=== PATIENT | female | born 1990 | race American Indian/Alaskan Native ===

== ENCOUNTER 2016-11-11 14:26 | Emergency (ER) | payer MEDICAID ==
[2016-11-11] MEDS ORDERED: Sodium Chloride 0.9% 10 ML Syringe FLUSH PRN (15:43)
[2016-11-11] MEDS ORDERED: Sodium Chloride 0.9% 1,000 ML IV ONE ×2 (15:43→18:40)
[2016-11-11 15:52] VITALS: BP 114/87
--- NOTE | 2016-11-11 16:18 | EDM.PDOC ---
ED HPI GENERAL MEDICAL PROBLEM - General Chief Complaint: Abdominal Pain Stated Complaint: STOMACH PAIN Time Seen by Provider: 11/11/16 16:09 Source of Information: Reports: Patient, RN, RN Notes Reviewed History Limitations: Reports: No Limitations - History of Present Illness INITIAL COMMENTS - FREE TEXT/NARRATIVE: Patient presents to the ER with c/o severe abdominal pain. She states this pain began 1 week ago. It has progressively worsened. She states the pain is in the lower right and left quadrants and wraps around to the right flank. She states she has been having fevers on and off. She denies N/V/D, CP, SOB, headaches. Patient states when she steps on the right leg she has sharp pain shooting into the right side of the abdomen. LMP: End october (stated by patient) Onset: Gradual Onset Date: 11/06/16 Duration: Getting Worse Location: Reports: Abdomen Quality: Reports: Sharp, Stabbing Severity: Severe Improves with: Reports: None Worsens with: Reports: None Associated Symptoms: Reports: Fever/Chills - Related Data Allergies Allergy/AdvReac Type Severity Reaction Status Date / Time No Known Allergies Allergy Verified 11/11/16 15:36 Home Meds: Home Meds . [No Known Home Meds] 11/11/16 [History] ED ROS GENERAL - Review of Systems Review Of Systems: ROS reveals no pertinent complaints other than HPI. ED EXAM, GI/ABD - Physical Exam Exam: See Below Exam Limited By: No Limitations General Appearance: Alert, WD/WN, No Apparent Distress Eyes: Bilateral: Normal Appearance Ears: Normal External Exam, Hearing Grossly Normal Nose: Normal Inspection, Normal Mucosa, No Blood Throat/Mouth: Normal Inspection, Normal Lips, Normal Teeth, Normal Gums, Normal Oropharynx, Normal Voice, No Airway Compromise Head: Atraumatic, Normocephalic Neck: Normal Inspection, Supple, Non-Tender, Full Range of Motion Respiratory/Chest: No Respiratory Distress, Lungs Clear, Normal Breath Sounds, No Accessory Muscle Use, Chest Non-Tender Cardiovascular: Normal Peripheral Pulses, Regular Rate, Rhythm, No Edema, No Gallop, No JVD, No Murmur, No Rub GI/Abdominal Exam: Normal Bowel Sounds, Soft, Non-Tender, No Organomegaly, No Distention, No Abnormal Bruit, No Mass, Rebound (rlq) (Female) Exam: Deferred Rectal (Female) Exam: Deferred Back Exam: Normal Inspection, Full Range of Motion Extremities: Normal Inspection, Normal Range of Motion, Non-Tender, No Pedal Edema, Normal Capillary Refill Neurological: Alert, Oriented, Normal Cognition, Normal Gait, Normal Reflexes, No Motor/Sensory Deficits Psychiatric: Normal Affect, Normal Mood Skin Exam: Warm, Dry, Intact, Normal Color, No Rash Lymphatic: No Adenopathy Course - Vital Signs Last Recorded V/S: Last Vital Signs Temp 98 F 11/11/16 15:28 Pulse 88 11/11/16 15:28 Resp 16 11/11/16 15:28 BP 114/87 11/11/16 15:28 Pulse Ox 100 11/11/16 15:28 - Orders/Labs/Meds Orders: Active Orders 24 hr Category Date Time Status EKG Documentation Completion [RC] STAT Care 11/11/16 18:32 Active Peripheral IV Care [RC] . DIRECTED Care 11/11/16 15:43 Active Sodium Chloride 0.9% [Saline Flush] Med 11/11/16 15:43 Active 10 ml FLUSH ASDIRECTED PRN Peripheral IV Insertion Adult [OM.PC] Stat Oth 11/11/16 15:43 Ordered Medication Orders Sodium Chloride (Saline Flush) 10 ml FLUSH ASDIRECTED PRN PRN Reason: Keep Vein Open Labs: Laboratory Tests 11/11/16 11/11/16 11/11/16 Range/Units 15:50 15:50 15:50 WBC 17.9 H (5.0-10.0) 10^3/uL RBC 4.33 (4.2-5.4) 10^6/uL Hgb 11.9 L (12.0-16.0) g/dL Hct 36.6 L (37.0-47.0) % MCV 84.5 (80-100) fL MCH 27.5 (27.0-34.0) pg MCHC 32.5 L (33.0-35.0) g/dL Plt Count 369 (150-450) 10^3/uL Neut % (Auto) 80.3 H (42.2-75.2) % Lymph % (Auto) 11.9 L (20.5-50.1) % [place] % (Auto) 6.6 (2-8) % Eos % (Auto) 1.0 (1.0-3.0) % Baso % (Auto) 0.2 (0.0-1.0) % Sodium 138 (135-145) mmol/L Potassium 3.5 L (3.6-5.0) mmol/L Chloride 101 (101-111) mmol/L Carbon Dioxide 28.0 (21.0-31.0) mmol/L Anion Gap 12.5 BUN 8 (7-18) mg/dL Creatinine 0.7 (0.6-1.3) mg/dL Est Cr Clr Drug Dosing 106.09 mL/min Estimated GFR (MDRD) > 60 BUN/Creatinine Ratio 11.42 Glucose 73 L (74-105) mg/dL Calcium 8.5 (8.4-10.2) mg/dl Total Bilirubin 0.5 (0.2-1.0) mg/dL AST 17 (10-42) IU/L ALT 22 (10-60) IU/L Alkaline Phosphatase 95 (42-121) IU/L Total Protein 7.1 (6.7-8.2) g/dl Albumin 3.3 (3.2-5.5) g/dl Globulin 3.8 Albumin/Globulin Ratio 0.87 Urine Color (YELLOW) Urine Appearance (CLEAR) Urine pH (5.0-9.0) Ur Specific [place] (1.005-1.030) Urine Protein (NEGATIVE) Urine Glucose (UA) (NEGATIVE) Urine Ketones (NEGATIVE) Urine Occult Blood (NEGATIVE) Urine Nitrite (NEGATIVE) Urine Bilirubin (NEGATIVE) Urine Urobilinogen (0.2-1.0) mg/dL Ur Leukocyte Esterase (NEGATIVE) Urine RBC /HPF Urine WBC (0-5/HPF) /HPF Ur Epithelial Cells /HPF Urine Bacteria (0-FEW/HPF) /HPF Hyaline Casts /LPF Urine Mucus /LPF Urine HCG, Qual Urine Opiates Screen (NEGATIVE) Ur Oxycodone Screen (NEGATIVE) Urine Methadone Screen (NEGATIVE) Ur Barbiturates Screen (NEGATIVE) U Tricyclic Antidepress (NEGATIVE) Ur Phencyclidine Scrn (NEGATIVE) Ur Amphetamine Screen (NEGATIVE) U Methamphetamines Scrn (NEGATIVE) Urine MDMA Screen (NEGATIVE) U Benzodiazepines Scrn (NEGATIVE) Urine Cocaine Screen (NEGATIVE) U Marijuana (THC) Screen (NEGATIVE) Ethyl Alcohol < 5 mg/dL 10/05/2511/11/16 11/11/16 Range/Units 16:24 16:24 16:24 WBC (5.0-10.0) 10^3/uL RBC (4.2-5.4) 10^6/uL Hgb (12.0-16.0) g/dL Hct (37.0-47.0) % MCV (80-100) fL MCH (27.0-34.0) pg MCHC (33.0-35.0) g/dL Plt Count (150-450) 10^3/uL Neut % (Auto) (42.2-75.2) % Lymph % (Auto) (20.5-50.1) % [place] % (Auto) (2-8) % Eos % (Auto) (1.0-3.0) % Baso % (Auto) (0.0-1.0) % Sodium (135-145) mmol/L Potassium (3.6-5.0) mmol/L Chloride (101-111) mmol/L Carbon Dioxide (21.0-31.0) mmol/L Anion Gap BUN (7-18) mg/dL Creatinine (0.6-1.3) mg/dL Est Cr Clr Drug Dosing mL/min Estimated GFR (MDRD) BUN/Creatinine Ratio Glucose (74-105) mg/dL Calcium (8.4-10.2) mg/dl Total Bilirubin (0.2-1.0) mg/dL AST (10-42) IU/L ALT (10-60) IU/L Alkaline Phosphatase (42-121) IU/L Total Protein (6.7-8.2) g/dl Albumin (3.2-5.5) g/dl Globulin Albumin/Globulin Ratio Urine Color Dark yellow (YELLOW) Urine Appearance Clear (CLEAR) Urine pH 5.5 (5.0-9.0) Ur Specific [place] >= 1.030 (1.005-1.030) Urine Protein 30 H (NEGATIVE) Urine Glucose (UA) Negative (NEGATIVE) Urine Ketones Trace H (NEGATIVE) Urine Occult Blood Negative (NEGATIVE) Urine Nitrite Negative (NEGATIVE) Urine Bilirubin Small H (NEGATIVE) Urine Urobilinogen 1.0 (0.2-1.0) mg/dL Ur Leukocyte Esterase Small H (NEGATIVE) Urine RBC 0-5 /HPF Urine WBC 10-20 H (0-5/HPF) /HPF Ur Epithelial Cells Many H /HPF Urine Bacteria Many H (0-FEW/HPF) /HPF Hyaline Casts Few H /LPF Urine Mucus Many H /LPF Urine HCG, Qual Negative Urine Opiates Screen Positive H (NEGATIVE) Ur Oxycodone Screen Positive H (NEGATIVE) Urine Methadone Screen Negative (NEGATIVE) Ur Barbiturates Screen Negative (NEGATIVE) U Tricyclic Antidepress Negative (NEGATIVE) Ur Phencyclidine Scrn Negative (NEGATIVE) Ur Amphetamine Screen Positive H (NEGATIVE) U Methamphetamines Scrn Positive H (NEGATIVE) Urine MDMA Screen Positive H (NEGATIVE) U Benzodiazepines Scrn Negative (NEGATIVE) Urine Cocaine Screen Negative (NEGATIVE) U Marijuana (THC) Screen Positive H (NEGATIVE) Ethyl Alcohol mg/dL Meds: Medications Generic Name Dose Route Start Last Admin Trade Name Freq PRN Reason Stop Dose Admin Sodium Chloride 10 ml 11/11/16 15:43 Saline Flush FLUSH ASDIRECTED PRN Keep Vein Open Discontinued Medications Generic Name Dose Route Start Last Admin Trade Name Freq PRN Reason Stop Dose Admin Hydromorphone HCl 0.5 mg 11/11/16 16:50 11/11/16 17:00 Dilaudid IVPUSH 11/11/16 16:51 0.5 mg ONETIME ONE Administration Sodium Chloride 1,000 mls @ 999 mls/hr 11/11/16 15:43 11/11/16 16:00 Normal Saline IV 11/11/16 16:43 999 mls/hr .BOLUS ONE Administration Iopamidol 75 ml 11/11/16 17:03 11/11/16 17:34 Isovue-300 (61%) IVPUSH 11/11/16 17:04 75 ml ONETIME ONE Administration Departure - Departure Time of Disposition: 18:37 Disposition: DC/Tfer to Acute Hospital 02 Condition: Fair Clinical Impression: Abdominal abscess Abdominal pain Qualifiers: Abdominal location: lower abdomen, unspecified Qualified Code(s): R10.30 - Lower abdominal pain, unspecified - Discharge Information Forms: ED Department Discharge, Interfacility Transfer EMTALA - My Orders Last 24 Hours: My Active Orders 11/11/16 15:43 Peripheral IV Care [RC] . DIRECTED Sodium Chloride 0.9% [Saline Flush] 10 ml FLUSH ASDIRECTED PRN Peripheral IV Insertion Adult [OM.PC] Stat 11/11/16 18:32 EKG Documentation Completion [RC] STAT - Assessment/Plan Last 24 Hours: My Active Orders 11/11/16 15:43 Peripheral IV Care [RC] . DIRECTED Sodium Chloride 0.9% [Saline Flush] 10 ml FLUSH ASDIRECTED PRN Peripheral IV Insertion Adult [OM.PC] Stat 11/11/16 18:32 EKG Documentation Completion [RC] STAT
[2016-11-11 16:21] LABS: CHLORIDE,CL 101 mmol/L (101-111); SODIUM,NA 138 mmol/L (135-145)
[2016-11-11] MEDS ORDERED: HYDROmorphone 1 MG/ML Syringe IVPUSH ONE ×2 (16:50→18:40)
[2016-11-11] MEDS ORDERED: Iopamidol 612 MG/ML 75 ML Bottle IVPUSH ONE (17:03)
--- NOTE | 2016-11-14 11:34 | EKG ---
11/11/2016 - ATILIO STAPLES - This 12-lead EKG shows normal sinus rhythm. No significant ST elevation or ST depression noted on this 12-lead EKG. [facility] /[id number]
== END 2016-11-11 19:01 ==
LOC: DL.ED 14:26
DX: K65.1 Peritoneal abscess (principal)
CPT/HCPCS: 36415; 74177; 80053; 80305; 81001; 81025; 83605; 85025; 87040; 93005; 93010; 96361; 96374; 96376; 99285; G0480; J1170; J7030; J7050; Q9967; 99284

== ENCOUNTER 2019-10-26 00:01 | Inpatient (IN) | payer MEDICAID, OTHER ==
[~2019-10-26 00:01] MED LIST: Acetaminophen 325 MG Tab PO PRN; Carboprost Tromethamine 250 MCG/1 ML Amp IM PRN; Lactated Ringers 1,000 ML IV ONE; Lactated Ringers 1,000 ML IV SCH; Lactated Ringers 500 ML IV SCH; Lidocaine 1% 30 ML SDV INJECT PRN; Methylergonovine 0.2 MG/1 ML Amp IM PRN; Misoprostol 400 MCG (4 X 100 MCG TAB) RECTAL PRN; Naloxone 2 MG/2 ML Syringe IVPUSH PRN; Ondansetron 4 MG/2 ML SDV IVPUSH PRN; Oxytocin/Normal Saline 30 UNIT/500 ML BAG IV SCH; Promethazine 25 MG/ML SDV IM PRN; Sodium Chloride 0.9% 1,000 ML IV SCH; Sodium Chloride 0.9% 10 ML Syringe FLUSH PRN; Tranexamic Acid 1,000 MG in Sodium Chloride 0.9% 100 ML IV PRN; ePHEDrine 50 MG/ML SDV IVPUSH PRN
[2019-10-26] MEDS: Misoprostol 25 MCG (1/4 of 100 MCG) Tab VAG PRN ×3 (00:58→09:19)
[2019-10-26] MEDS: Lactated Ringers 1,000 ML IV SCH (14:45)
[2019-10-26] MEDS ORDERED: hydrOXYzine HCl 25 MG Tab PO PRN (21:19)
[2019-10-27] MEDS: Lactated Ringers 1,000 ML IV SCH ×2 (02:36→20:14)
--- NOTE | 2019-10-27 05:34 | PCM.LDHP ---
L&D History of Present Illness - General Date of Service: 10/26/19 Admit Problem/Dx: Patient Status Order with Admit Dx/Problem 10/25/19 16:01 Patient Status [ADT] Routine Admission Diagnosis/Problem Admission Diagnosis/Problem Term Source of Information: Patient - History of Present Illness Introduction:: Patient is a at 40w0d based on a 34 week ultrasound who presents to L&D for induction of labor due to term dates. She is GBS positive. She states baby has been active. Denies contractions, vaginal bleeding, leakage of fluid. has been complicated by maternal drug use up until August when she was incarcerated. Urine drug tests were positive for methamphetamines, amphetamines, marijuana and MDMA. She was incarcerated in the third trimester and has had clean urine drug screens since then. She does use tobacco. She has a history of macrosomia, shoulder dystocia with a broken clavicle during her first delivery. Her third baby was born at 36 weeks. She did require vacuuming in 2 of her 3 deliveries as well. She did have preeclampsia with one of the pregnancies. Past medical history: depression, pelvic abscess, polysubstance abuse Pain Score: 0 - Related Data Allergies/Adverse Reactions: Allergies Allergy/AdvReac Type Severity Reaction Status Date / Time amoxicillin Allergy Other Verified 10/26/19 01:05 Home Medications: Home Meds Ferrous Sulfate [Feosol] 325 mg PO DAILY 10/26/19 [History] #103/Iron Fumarate/Fa [ ] 1 tab PO DAILY 10/26/19 [History] diphenhydrAMINE HCL [Benadryl] 25 mg PO BEDTIME PRN 10/26/19 [History] Past Medical History HEENT History: Reports: None Cardiovascular History: Reports: Heart Murmur Respiratory History: Reports: None Gastrointestinal History: Reports: None Genitourinary History: Reports: STD, UTI, Recurrent [employer] History: Reports: , Other (See Below) Other OB/BYN History: hx abnormal pap, hx of pelvic abscess Musculoskeletal History: Reports: None Neurological History: Reports: None Psychiatric History: Reports: Addiction, Depression Endocrine/Metabolic History: Reports: None Hematologic History: Reports: Anemia Immunologic History: Reports: None Oncologic (Cancer) History: Reports: None Dermatologic History: Reports: None - Infectious Disease History Infectious Disease History: Reports: Hepatitis C - Past Surgical History Female Surgical History: Reports: None Other Female Surgeries/Procedures: Pelvic abscess drainage Dermatological Surgical History: Reports: Other (See Below) Social & Family History - Family History Family Medical History: Noncontributory - Tobacco Use Smoking Status *Q: Current Some Day Smoker Tobacco Use Within Last Twelve Months: Cigarettes Years of Tobacco use: 5 Packs/Tins Daily: 0.2 Second Hand Smoke Exposure: No - Caffeine Use Caffeine Use: Reports: Soda - Recreational Drug Use Recreational Drug Use: Yes Drug Use in Last 12 Months: Yes Recreational Drug Type: Reports: Amphetamines (Speed), Marijuana/Hashish, Methamphetamine - Living Situation & Occupation Living situation: Reports: Single Occupation: Unemployed Social History Comment: Was in senior living on [facility]. Per patient, will be released from time committment at the time of her delivery. H&P Review of Systems - Review of Systems: Review Of Systems: See Below General: Denies: Fever, Chills HEENT: Reports: Headaches Pulmonary: Denies: Shortness of Breath, Cough Cardiovascular: Denies: Edema, Lightheadedness Gastrointestinal: Denies: Abdominal Pain, Nausea, Vomiting Skin: Denies: Rash L&D Exam - Exam Exam: See Below - Vital Signs Vital Signs: Last Vital Signs Temp 98.7 F 10/27/19 02:30 Pulse 66 10/27/19 02:30 Resp 16 10/27/19 02:30 BP 131/84 10/27/19 02:30 Pulse Ox 99 10/26/19 09:20 Weight: 192 lb - OB Specific Contraction Duration (sec): 60-80 Contraction Frequency (min): occasional Contraction Intensity: Mild Movement: Active Heart Tones: Present Heart Tones per Min: 140 Heart Rate (FHR) Variability: Moderate (6-25 bmp) Presentation: Vertex - Sharif Score Sharif Score Cervix Position: Posterior Sharif Score Consistency: Firm Sharif Score Effacement: 31-50% Sharif Score Dilation: 1-2 cm Sharif Score Infant's Station: -3 Sharif Score Total: 2 - Exam General: Alert, Oriented, Cooperative HEENT: Conjunctiva Clear, Mucosa Moist & [place], Posterior Pharynx Clear Neck: Supple, Trachea Midline Lungs: Clear to Auscultation, Normal Respiratory Effort Cardiovascular: Regular Rate, Regular Rhythm, Normal S1, Normal S2 GI/Abdominal Exam: Soft, Non-Tender Extremities: Normal Range of Motion, Non-Tender, No Pedal Edema Skin: Warm, Dry, Intact Neurological: Reflexes Equal Bilateral - Patient Data Result Diagrams: 10/26/19 00:42 - Problem List (1) Hx of macrosomia in in prior , currently SNOMED Code(s): 17785969033333, 01603901816820 ICD Code: O09.299 - SUPRVSN OF PREG W POOR REPRODCTV OR OBSTET HISTORY, UNSP TRI Status: Acute Current Visit: Yes (2) Hx shoulder dystocia, clavicle fx, prior , SNOMED Code(s): 509216539, 972260567 ICD Code: O09.299 - SUPRVSN OF PREG W POOR REPRODCTV OR OBSTET HISTORY, UNSP TRI Status: Acute Current Visit: Yes (3) Hx of delivery, currently SNOMED Code(s): 530309369, 327659178 ICD Code: O09.899 - SUPERVISION OF OTHER HIGH RISK PREGNANCIES, UNSP TRIMESTER Status: Acute Current Visit: Yes (4) GBS (group B Streptococcus carrier), +RV culture, currently SNOMED Code(s): 0324304439989, 597539381, 6667240674615 ICD Code: O99.820 - STREPTOCOCCUS B CARRIER STATE COMPLICATING Status: Acute Current Visit: Yes (5) Term SNOMED Code(s): 77307794 ICD Code: Z34.90 - ENCNTR FOR SUPRVSN OF NORMAL , UNSP, UNSP TRIMESTER Status: Acute Current Visit: Yes (6) Drug abuse during SNOMED Code(s): 81652437 ICD Code: O99.320 - DRUG USE COMPLICATING , UNSPECIFIED TRIMESTER; F19.10 - OTHER PSYCHOACTIVE SUBSTANCE ABUSE, UNCOMPLICATED Status: Acute Current Visit: Yes (7) Anemia affecting SNOMED Code(s): 56452603 ICD Code: O99.019 - ANEMIA COMPLICATING , UNSPECIFIED TRIMESTER Status: Acute Current Visit: Yes (8) Hx of pre-eclampsia in prior , currently SNOMED Code(s): 132773831973663, 020557074367383 ICD Code: O09.299 - SUPRVSN OF PREG W POOR REPRODCTV OR OBSTET HISTORY, UNSP TRI Status: Acute Current Visit: Yes Problem List Initiated/Reviewed/Updated: Yes Orders Last 24hrs: Active Orders 24 hr Category Date Time Status Nitrous Oxide Delivery [RC] ASDIRECTED Care 10/26/19 06:28 Active OB Discontinue Nitrous Oxide [RC] ASDIRECTED Care 10/26/19 06:28 Active Regular Diet [DIET] Diet 10/26/19 Breakfast Active hydrOXYzine HCL [Atarax] Med 10/26/19 21:19 Active 50 mg PO Q6H PRN Medication Orders Acetaminophen (Tylenol) 650 mg PO Q4H PRN PRN Reason: Pain/Fever Last Admin: 10/26/19 20:08 Dose: 650 mg Documented by: BRITTANI Carboprost Tromethamine (Hemabate Ds) 250 mcg IM ASDIRECTED PRN PRN Reason: HEMORRHAGE Ephedrine Sulfate (Ephedrine Sulfate) 5 mg IVPUSH Q5M PRN PRN Reason: See Label Comments Hydroxyzine HCl (Atarax) 50 mg PO Q6H PRN PRN Reason: Insomnia Last Admin: 10/26/19 22:13 Dose: 50 mg Documented by: BRITTANI Lactated Ringer's (Ringers, Lactated) 1,000 mls @ 999 mls/hr IV ASDIRECTED BECKY Oxytocin/Sodium Chloride (Pitocin In Ns 30 Unit/500 Ml) 30 unit in 500 mls @ 2 mls/hr IV TITRATE BECKY; Protocol Last Titration: 10/27/19 04:16 Dose: 6 munits/min, 6 mls/hr Documented by: Titration: 10/26/19 20:05 Dose: 5 munits/min, 5 mls/hr Documented by: Titration: 10/26/19 18:00 Dose: 6 munits/min, 6 mls/hr Documented by: Titration: 10/26/19 15:30 Dose: 4 munits/min, 4 mls/hr Documented by: Admin: 10/26/19 14:45 Dose: 2 munits/min, 2 mls/hr Documented by: LYRIC Lactated Ringer's (Ringers, Lactated) 1,000 mls @ 125 mls/hr IV ASDIRECTED BECKY Last Admin: 10/27/19 02:36 Dose: 125 mls/hr Documented by: Infusion: 10/26/19 22:45 Dose: 125 mls/hr Documented by: Admin: 10/26/19 14:45 Dose: 125 mls/hr Documented by: LYRIC Tranexamic Acid 1,000 mg/ (Sodium Chloride) 110 mls @ 660 mls/hr IV ONETIME PRN PRN Reason: Bleeding Lactated Ringer's (Ringers, Lactated) 500 mls @ 999 mls/hr IV SEECOMMENT BECKY Lactated Ringer's (Ringers, Lactated) 500 mls @ 999 mls/hr IV .BOLUS BECKY Vancomycin HCl 1 gm/ Sodium (Chloride) 250 mls @ 166.7 mls/hr IV Q12H BECKY Last Admin: 10/27/19 04:03 Dose: 130 mls/hr Documented by: Infusion: 10/26/19 18:28 Dose: 130 mls/hr Documented by: Admin: 10/26/19 16:32 Dose: 130 mls/hr Documented by: Infusion: 10/26/19 06:04 Dose: 166.7 mls/hr Documented by: Admin: 10/26/19 04:34 Dose: 166.7 mls/hr Documented by: BLANCA Lidocaine HCl (Xylocaine-Mpf 1%) 30 ml INJECT ASDIRECTED PRN PRN Reason: Perineal Repair Methylergonovine Maleate (Methergine) 0.2 mg IM ASDIRECTED PRN PRN Reason: Hemorrhage Misoprostol (Cytotec) 800 mcg RECTAL ASDIRECTED PRN PRN Reason: Hemorrhage Misoprostol (Cytotec) 25 mcg VAG Q4H PRN PRN Reason: cervical ripening Last Admin: 10/26/19 09:19 Dose: 25 mcg Documented by: Admin: 10/26/19 05:11 Dose: 25 mcg Documented by: Admin: 10/26/19 00:58 Dose: 25 mcg Documented by: BLANCA Naloxone HCl (Narcan) 0.1 mg IVPUSH SEECOMMENT PRN PRN Reason: Respiratory Depression Ondansetron HCl (Zofran) 4 mg IVPUSH Q4H PRN PRN Reason: Nausea/Vomiting Promethazine HCl (Phenergan) 12.5 mg IM Q6H PRN PRN Reason: Nausea/Vomiting Sodium Chloride (Saline Flush) 10 ml FLUSH ASDIRECTED PRN PRN Reason: Keep Vein Open Assessment/Plan Comment:: Patient presents for induction of labor due to term at 40w0d. Discussed use of cytotec due to low sharif score. Patient in agreement. Initiate pitocin when appropriate. GBS positive, clindamycin resistant, vanco susceptible. Vancomycin will be started in after 2nd dose of cytotec. Patient may eat tonight and have breakfast in the morning. Urine drug screen negative. Continue intrapartum cares. Patient does desire an intrathecal. Other pain relief options discussed. Amparo Samuel MD
[2019-10-27] MEDS: Misoprostol 25 MCG (1/4 of 100 MCG) Tab VAG PRN ×2 (08:54→14:09)
--- NOTE | 2019-10-27 09:22 | PCM.PNLD ---
Labor Progress Note - VS & Meds Vital Signs: Last Vital Signs Temp 98.8 F 10/27/19 08:00 Pulse 66 10/27/19 06:00 Resp 16 10/27/19 06:00 BP 114/66 10/27/19 06:00 Pulse Ox 99 10/26/19 09:20 Active Medications: Current Medications Acetaminophen (Tylenol) 650 mg PO Q4H PRN PRN Reason: Pain/Fever Last Admin: 10/26/19 20:08 Dose: 650 mg Documented by: Carboprost Tromethamine (Hemabate Ds) 250 mcg IM ASDIRECTED PRN PRN Reason: HEMORRHAGE Ephedrine Sulfate (Ephedrine Sulfate) 5 mg IVPUSH Q5M PRN PRN Reason: See Label Comments Hydroxyzine HCl (Atarax) 50 mg PO Q6H PRN PRN Reason: Insomnia Last Admin: 10/26/19 22:13 Dose: 50 mg Documented by: Lactated Ringer's (Ringers, Lactated) 1,000 mls @ 999 mls/hr IV ASDIRECTED BECKY Oxytocin/Sodium Chloride (Pitocin In Ns 30 Unit/500 Ml) 30 unit in 500 mls @ 2 mls/hr IV TITRATE BECKY; Protocol Last Titration: 10/27/19 08:00 Dose: 0 munits/min, 0 mls/hr Documented by: Lactated Ringer's (Ringers, Lactated) 1,000 mls @ 125 mls/hr IV ASDIRECTED BECKY Last Admin: 10/27/19 02:36 Dose: 125 mls/hr Documented by: Tranexamic Acid 1,000 mg/ (Sodium Chloride) 110 mls @ 660 mls/hr IV ONETIME PRN PRN Reason: Bleeding Lactated Ringer's (Ringers, Lactated) 500 mls @ 999 mls/hr IV SEECOMMENT BECKY Lactated Ringer's (Ringers, Lactated) 500 mls @ 999 mls/hr IV .BOLUS BECKY Vancomycin HCl 1 gm/ Sodium (Chloride) 250 mls @ 166.7 mls/hr IV Q12H BECKY Last Admin: 10/27/19 04:03 Dose: 130 mls/hr Documented by: Lidocaine HCl (Xylocaine-Mpf 1%) 30 ml INJECT ASDIRECTED PRN PRN Reason: Perineal Repair Methylergonovine Maleate (Methergine) 0.2 mg IM ASDIRECTED PRN PRN Reason: Hemorrhage Misoprostol (Cytotec) 800 mcg RECTAL ASDIRECTED PRN PRN Reason: Hemorrhage Misoprostol (Cytotec) 25 mcg VAG Q4H PRN PRN Reason: cervical ripening Last Admin: 10/27/19 08:54 Dose: 25 mcg Documented by: Naloxone HCl (Narcan) 0.1 mg IVPUSH SEECOMMENT PRN PRN Reason: Respiratory Depression Ondansetron HCl (Zofran) 4 mg IVPUSH Q4H PRN PRN Reason: Nausea/Vomiting Promethazine HCl (Phenergan) 12.5 mg IM Q6H PRN PRN Reason: Nausea/Vomiting Sodium Chloride (Saline Flush) 10 ml FLUSH ASDIRECTED PRN PRN Reason: Keep Vein Open Discontinued Medications Lactated Ringer's (Ringers, Lactated) 1,000 mls @ 999 mls/hr IV BOLUS ONE Stop: 10/25/19 17:00 Last Admin: 10/26/19 10:44 Dose: Not Given Documented by: Oxytocin/Sodium Chloride (Pitocin In Ns 30 Unit/500 Ml) 30 unit in 500 mls @ 2 mls/hr IV TITRATE BECKY; Protocol - Uterine Contractions Uterine Monitoring Mode: External [place] Contraction Frequency (min): occasional Contraction Duration (sec): 60-80 Contraction Intensity: Mild Uterine Resting Tone: Soft - Monitoring Heart Rate (FHR) Variability: Moderate (6-25 bmp) - Vaginal Exam Dilation (cm): 1 Effacement (Percent): 50 Station: Ballotable Cervical Position: Posterior Sterile Vaginal Exam Performed By: Jacqueline Hayward Vaginal Exam Comment: 25mcg cytotec placed - Labor Progress (Free Text) Labor Progress: Patient received 3 doses of Cytotec but contractions were too frequent to place a 4th dose. She was started on Pitocin. Due to contraction frequency, she was held at 6 of pit for much of the night. Patient's contractions are now spacing out. Baby continues to have category 1 strip. Her cervix remains unchanged since previous checks. We will stop Pitocin and restart Cytotec. Dr. Carr will be taking over starting at noon. I spoke with patient and significant other. She plans to walk and get on a birthing ball throughout the day. She is still comfortable with her contractions. She is in agreement with plan. Amparo Samuel MD
[2019-10-27] MEDS ORDERED: Ketorolac 30 MG/ML SDV IVPUSH SCH (20:00)
[2019-10-27] MEDS: Oxytocin/Normal Saline 30 UNIT/500 ML BAG IV SCH (20:10)
[2019-10-28] MEDS ORDERED: fentaNYL 100 MCG/2 ML SDV IVPUSH ONE ×2 (04:11→08:30)
[2019-10-28] MEDS: Lactated Ringers 1,000 ML IV SCH ×2 (06:33→09:30)
[2019-10-28] MEDS ORDERED: Sodium Chloride 0.9% 20 ML SDV ONE (10:30)
[2019-10-28] MEDS ORDERED: EPINEPHrine 1 MG/1 ML Amp ONE ×2 (10:30→10:36)
[2019-10-28] MEDS ORDERED: Sodium Bicarbonate 4.2% 2.5 MEQ/5 ML SDV ONE ×2 (10:30→10:37)
[2019-10-28] MEDS ORDERED: fentaNYL 100 MCG/2 ML SDV ITHECAL ONE (10:30)
[2019-10-28] MEDS ORDERED: fentaNYL 100 MCG/2 ML SDV ONE (10:36)
--- NOTE | 2019-10-28 11:01 | PCM.SN.2 ---
- Free Text/Narrative Note: Intrathecal, sitting position, sterile prep and drape. 1% lidocaine with bicarb for skinwheal to L2 L3 interspace. Introducer, 24 ga pencan x 1. Pos CSF, neg heme, neg parasthesia. 0.1 ml 1:1000 pf epi , 20 mcg pf sufenta, 30 mcg pf fentanyl, 0.4 ml pf ns and 6 mg of 0.75% marcaine injected after CSF aspiration. Pt to L lateral position. Procedure time 1040 to 1110
[2019-10-28] MEDS ORDERED: Zolpidem 5 MG Tab PO PRN (13:38)
[2019-10-28] MEDS ORDERED: Simethicone 80 MG Tab.Chew PO PRN (13:38)
[2019-10-28] MEDS ORDERED: Oxytocin 10 Units/1 ML SDV IM PRN (13:38)
[2019-10-28] MEDS ORDERED: Benzocaine/Menthol 20%-0.5% Spray 56 GM Canister TOP PRN (13:38)
[2019-10-28] MEDS ORDERED: Tranexamic Acid 1,000 MG in Sodium Chloride 0.9% 100 ML IV PRN (13:38)
[2019-10-28] MEDS ORDERED: Carboprost Tromethamine 250 MCG/1 ML Amp IM PRN (13:38)
[2019-10-28] MEDS ORDERED: Sodium Chloride 0.9% 10 ML Syringe FLUSH PRN (13:38)
[2019-10-28] MEDS ORDERED: Misoprostol 400 MCG (4 X 100 MCG TAB) RECTAL PRN (13:38)
[2019-10-28] MEDS ORDERED: Acetaminophen 325 MG Tab PO PRN (13:38)
[2019-10-28] MEDS: Oxytocin/Normal Saline 30 UNIT/500 ML BAG IV SCH (14:20)
--- NOTE | 2019-10-28 17:11 | DEL ---
DATE: 10/28/2019 LOCATION: [facility]. PREDELIVERY DIAGNOSES: Intrauterine at 39+ weeks gestational age with advanced maternal age and group B Streptococcus positive. Delivery was a normal spontaneous vaginal delivery. Delivering clinician was Dr. Carr. FINDINGS: There was a viable infant, who weighed 3670 g. scores were 8 and 9. No laceration. ESTIMATED BLOOD LOSS: 300 mL to 400 mL. Rectal Cytotec was placed for some atony. PROCEDURE IN DETAIL: The patient was brought in and induced with Cytotec, Pitocin, and AROM. She did require an IUPC, intrathecal was also placed. When the patient did proceed to complete, the patient did push. The 's head was delivered. Shoulder and body were delivered without any difficulties. The infant was placed on the maternal abdomen. Cord was cut and clamped. Cord blood was collected. The placenta was then delivered intact with uterine massage and some gentle traction. Perineum was examined. There were no lacerations. EBL was roughly 300 mL to 400 mL. There was some atony, which was unresponsive to massage and third stage Pitocin. Therefore, 800 mg of Cytotec was given per rectum, and then the vaginal bleeding did slow. At the end of the procedure, mom and baby were both doing well. [facility] /[id number]
[2019-10-28] MEDS: Ibuprofen 800 MG Tab PO PRN (19:57)
[2019-10-29] MEDS: Ibuprofen 800 MG Tab PO PRN ×2 (08:58→19:34)
[2019-10-29] MEDS: Docusate Sodium 100 MG Cap PO PRN (08:58)
[2019-10-29] MEDS: Prenatal Multivitamin with Calcium/Folic Acid/Iron Tab PO SCH (08:58)
--- NOTE | 2019-10-29 11:16 | PN ---
DATE: 10/29/2019 SUBJECTIVE: The patient is day 1, status post vaginal delivery at term. Mom and baby are both doing well. Bleeding is minimal. PHYSICAL EXAMINATION: Vital Signs: Temperature 36.8, blood pressure 123/88, heart rate 73, respiratory rate 14, and O2 saturation 99%. Abdomen: Patient's fundus is firm, below the umbilicus. Extremities: Have no tenderness. No edema. LABORATORY DATA: Patient's pre-delivery hemoglobin was 11.9 and this morning hemoglobin of 10.2, white count 11.5, and platelets 213. She is COVID-negative. Blood type O-positive and rubella immune. ASSESSMENT AND PLAN: day #1 status post vaginal delivery. Mom and baby are both doing well. We will continue care and likely discharge tomorrow. [facility] /[id number]
[2019-10-30] MEDS: Ibuprofen 800 MG Tab PO PRN (08:57)
[2019-10-30] MEDS: Prenatal Multivitamin with Calcium/Folic Acid/Iron Tab PO SCH (08:57)
[2019-10-30] MEDS: Docusate Sodium 100 MG Cap PO PRN (08:57)
[2019-10-30 09:05] VITALS: BP 130/91; PULSE 73
--- NOTE | 2019-10-30 11:51 | PCM.DCSUM1 ---
Discharge Summary - Hospital Course Free Text/Narrative:: 29-year-old s/p at 39+ weeks after IOL. Diagnosis: Stroke: No - Discharge Data Discharge Date: 10/30/19 Discharge Disposition: Home, Self-Care 01 Condition: Good - Referral to Home Health Primary Care Physician: Amparo Samuel MD - Patient Summary/Data Operative Procedure(s) Performed: None Complications: None Consults: Consultations 10/25/19 16:00 Consult to Case Management/Online Community Manager [CONS] Routine Labs Pending at D/C: none Recommended Follow-up Testing/Procedures: None Planned Operative Procedure(s) after DC: None Hospital Course: Please see subjective section - Patient Instructions Diet: Usual Diet as Tolerated Activity: As Tolerated, No Lifting Over 20 Pounds Driving: May Drive Today Showering/Bathing: May Shower Notify Provider of: Fever, Increased Pain, Swelling and Redness, Nausea and/or Vomiting - Discharge Plan *PRESCRIPTION DRUG MONITORING PROGRAM REVIEWED*: Not Applicable *COPY OF PRESCRIPTION DRUG MONITORING REPORT IN PATIENT YONI: Not Applicable Home Medications: Home Meds Ferrous Sulfate [Feosol] 325 mg PO DAILY 10/26/19 [History] #103/Iron Fumarate/Fa [ ] 1 tab PO DAILY 10/26/19 [History] diphenhydrAMINE HCL [Benadryl] 25 mg PO BEDTIME PRN 10/26/19 [History] Acetaminophen [Tylenol] 650 mg PO Q6H PRN tablet 10/30/19 [Rx] Docusate Sodium [Colace] 100 mg PO BID PRN cap 10/30/19 [Rx] Ibuprofen [Motrin] 800 mg PO Q8H PRN tablet 10/30/19 [Rx] witch Emilie [Medi-Pads] 1 each TOP Q4HR PRN pad 10/30/19 [Rx] Patient Handouts: Substance Use Disorder and Mental Illness, Baby Blues, Care After Vaginal Delivery Referrals: Amparo Samuel MD [Primary Care Provider] - (6-8 weeks for visit) - Discharge Summary/Plan Comment DC Time >30 min.: No Discharge Summary/Plan Comment: Discharge home today. Routine discharge information provided. Follow-up with Dr. Samuel in 6-8 weeks for routine care and sooner as needed. - General Info Date of Service: 10/30/19 Subjective Update: Patient is doing well. She is breast and bottle feeding. Tolerating a general diet. Voiding without difficulty. No dizziness or lightheadedness with ambulation. No fever or chills. Vaginal bleeding is decreasing. No concerns per patient or per nursing staff. Functional Status: Reports: Pain Controlled, Tolerating Diet, Ambulating, Urinating - Review of Systems General: Reports: No Symptoms HEENT: Reports: No Symptoms Pulmonary: Reports: No Symptoms Cardiovascular: Reports: No Symptoms Gastrointestinal: Reports: No Symptoms Genitourinary: Reports: No Symptoms Musculoskeletal: Reports: Back Pain Skin: Reports: No Symptoms - Patient Data Vitals - Most Recent: Last Vital Signs Temp 36.9 C 10/30/19 08:00 Pulse 73 10/30/19 08:00 Resp 16 10/30/19 08:00 BP 130/91 H 10/30/19 08:00 Pulse Ox 99 10/29/19 19:27 Weight - Most Recent: 87.09 kg Med Orders - Current: Current Medications Acetaminophen (Tylenol) 650 mg PO Q4H PRN PRN Reason: Pain/Fever Last Admin: 10/26/19 20:08 Dose: 650 mg Documented by: Acetaminophen (Tylenol) 650 mg PO Q6H PRN PRN Reason: mild pain or fever Benzocaine/Menthol (Dermoplast Pain Relief [place]) 0 gm TOP Q4H PRN PRN Reason: Perineal comfort measures Carboprost Tromethamine (Hemabate Ds) 250 mcg IM ASDIRECTED PRN PRN Reason: HEMORRHAGE Carboprost Tromethamine (Hemabate Ds) 250 mcg IM ASDIRECTED PRN PRN Reason: Excessive vaginal bleeding Docusate Sodium (Colace) 100 mg PO BID PRN PRN Reason: Constipation Last Admin: 10/30/19 08:57 Dose: 100 mg Documented by: Ephedrine Sulfate (Ephedrine Sulfate) 5 mg IVPUSH Q5M PRN PRN Reason: See Label Comments Hydroxyzine HCl (Atarax) 50 mg PO Q6H PRN PRN Reason: Insomnia Last Admin: 10/26/19 22:13 Dose: 50 mg Documented by: Lactated Ringer's (Ringers, Lactated) 1,000 mls @ 999 mls/hr IV ASDIRECTED BECKY Lactated Ringer's (Ringers, Lactated) 1,000 mls @ 125 mls/hr IV ASDIRECTED BECKY Last Admin: 10/28/19 09:30 Dose: 125 mls/hr Documented by: Tranexamic Acid 1,000 mg/ (Sodium Chloride) 110 mls @ 660 mls/hr IV ONETIME PRN PRN Reason: Bleeding Lactated Ringer's (Ringers, Lactated) 500 mls @ 999 mls/hr IV SEECOMMENT BECKY Lactated Ringer's (Ringers, Lactated) 500 mls @ 999 mls/hr IV .BOLUS BECKY Oxytocin/Sodium Chloride (Pitocin In Ns 30 Unit/500 Ml) 30 unit in 500 mls @ 2 mls/hr IV TITRATE BECKY; Protocol Last Titration: 10/28/19 16:35 Dose: 0 munits/min, 0 mls/hr Documented by: Tranexamic Acid 1,000 mg/ (Sodium Chloride) 110 mls @ 660 mls/hr IV ONETIME PRN PRN Reason: Bleeding Ibuprofen (Motrin) 800 mg PO Q8H PRN PRN Reason: Mild Pain or Fever Last Admin: 10/30/19 08:57 Dose: 800 mg Documented by: Lidocaine HCl (Xylocaine-Mpf 1%) 30 ml INJECT ASDIRECTED PRN PRN Reason: Perineal Repair Methylergonovine Maleate (Methergine) 0.2 mg IM ASDIRECTED PRN PRN Reason: Hemorrhage Misoprostol (Cytotec) 800 mcg RECTAL ASDIRECTED PRN PRN Reason: Hemorrhage Last Admin: 10/28/19 13:32 Dose: 800 mcg Documented by: Misoprostol (Cytotec) 25 mcg VAG Q4H PRN PRN Reason: cervical ripening Last Admin: 10/27/19 14:09 Dose: 25 mcg Documented by: Misoprostol (Cytotec) 800 mcg RECTAL ONETIME PRN PRN Reason: Hemorrhage Naloxone HCl (Narcan) 0.1 mg IVPUSH SEECOMMENT PRN PRN Reason: Respiratory Depression Ondansetron HCl (Zofran) 4 mg IVPUSH Q4H PRN PRN Reason: Nausea/Vomiting Last Admin: 10/28/19 10:34 Dose: 4 mg Documented by: Oxytocin (Pitocin) 10 unit IM ONETIME PRN PRN Reason: Bleeding Prenat Multivit/[place]/Iron/Folic Ac ( Plus Iron) 1 each PO DAILY BECKY Last Admin: 10/30/19 08:57 Dose: 1 each Documented by: Promethazine HCl (Phenergan) 12.5 mg IM Q6H PRN PRN Reason: Nausea/Vomiting Simethicone (Simethicone) 80 mg PO Q4H PRN PRN Reason: Gas Sodium Chloride (Saline Flush) 10 ml FLUSH ASDIRECTED PRN PRN Reason: Keep Vein Open Sodium Chloride (Saline Flush) 10 ml FLUSH ASDIRECTED PRN PRN Reason: Keep Vein Open Witch Emilie (Medi-Pads) 1 each TOP Q4HR PRN PRN Reason: Perineal Comfort Measure Zolpidem Tartrate (Ambien) 5 mg PO BEDTIME PRN PRN Reason: Insomnia Discontinued Medications Epinephrine HCl (Adrenalin) Confirm Administered Dose 1 mg .ROUTE .STK-MED ONE Stop: 10/28/19 10:37 Last Admin: 10/28/19 12:45 Dose: Not Given Documented by: Fentanyl (Sublimaze) 25 mcg IVPUSH ONETIME ONE Stop: 10/28/19 04:12 Last Admin: 10/28/19 12:44 Dose: Not Given Documented by: Fentanyl (Sublimaze) 25 mcg IVPUSH ONETIME ONE Stop: 10/28/19 08:31 Last Admin: 10/28/19 08:28 Dose: 25 mcg Documented by: Fentanyl (Sublimaze) Confirm Administered Dose 100 mcg .ROUTE .STK-MED ONE Stop: 10/28/19 10:37 Last Admin: 10/28/19 12:46 Dose: Not Given Documented by: Oxytocin/Sodium Chloride (Pitocin In Ns 30 Unit/500 Ml) 30 unit in 500 mls @ 2 mls/hr IV TITRATE BECKY; Protocol Last Titration: 10/27/19 08:00 Dose: 0 munits/min, 0 mls/hr Documented by: Lactated Ringer's (Ringers, Lactated) 1,000 mls @ 999 mls/hr IV BOLUS ONE Stop: 10/25/19 17:00 Last Admin: 10/26/19 10:44 Dose: Not Given Documented by: Oxytocin/Sodium Chloride (Pitocin In Ns 30 Unit/500 Ml) 30 unit in 500 mls @ 2 mls/hr IV TITRATE BECKY; Protocol Vancomycin HCl 1 gm/ Sodium (Chloride) 250 mls @ 166.7 mls/hr IV Q12H [facility] Last Admin: 10/28/19 04:00 Dose: 130 mls/hr Documented by: Sodium Bicarbonate (Sodium Bicarbonate 4.2%) Confirm Administered Dose 2.5 meq .ROUTE .STK-MED ONE Stop: 10/28/19 10:38 Last Admin: 10/28/19 12:46 Dose: Not Given Documented by: Sufentanil Citrate (Sufenta) Confirm Administered Dose 50 mcg .ROUTE .STK-MED ONE Stop: 10/28/19 10:38 Last Admin: 10/28/19 12:47 Dose: Not Given Documented by: - Exam General: Reports: Alert, Oriented HEENT: Reports: Pupils Equal Lungs: Reports: Clear to Auscultation, Normal Respiratory Effort Cardiovascular: Reports: Regular Rate, Regular Rhythm, No Murmurs GI/Abdominal Exam: Soft Extremities: Normal Inspection, No Pedal Edema Skin: Reports: Warm, Dry, Intact
== END 2019-10-30 14:30 | disposition home or self-care (01) | DRG 807 ==
LOC: DL.OBCHECK 00:01 → DL.OB 00:04 → OBSVTOIN 10-28 13:24 → EEVIPCON 10-28 13:24
PROVIDERS: ADMIT Family Medicine; ATTEND Family Medicine
PROC: 10E0XZZ Delivery of Products of Conception, External Approach (ICD-10-PCS; principal; 2019-10-28)
PROC: 3E0R3BZ Introduction of Anesthetic Agent into Spinal Canal, Percutaneous Approach (ICD-10-PCS; 2019-10-28)
PROC: 3E0P7VZ Introduction of Hormone into Female Reproductive, Via Natural or Artificial Opening (ICD-10-PCS; 2019-10-28)
PROC: 3E033VJ Introduction of Other Hormone into Peripheral Vein, Percutaneous Approach (ICD-10-PCS; 2019-10-28)
PROC: 10H07YZ Insertion of Other Device into Products of Conception, Via Natural or Artificial Opening (ICD-10-PCS; 2019-10-28)
DX: O48.0 Post-term pregnancy (principal); Z37.0 Single live birth; O99.824 Streptococcus B carrier state complicating childbirth; O99.334 Smoking (tobacco) complicating childbirth; F17.210 Nicotine dependence, cigarettes, uncomplicated; O99.02 Anemia complicating childbirth; D64.9 Anemia, unspecified; Z3A.40 40 weeks gestation of pregnancy; Z20.828 Contact with and (suspected) exposure to other viral communicable diseases
CPT/HCPCS: 01967; 36415; 51701; 59409; 80305-QW; 82565; 85027; A9270-GY; J0171; J2405; J2590; J3010; J3370; J7050; J7120; U0002